=== PATIENT | female | born 1960 | race Caucasian/White ===

== ENCOUNTER 2019-03-10 14:00 | Emergency (ER) | payer OTHER ==
[~2019-03-10] VITALS: Ht 154.9 cm; Wt 63.5 kg
[2019-03-10 14:03] VITALS: BP 130/70
--- NOTE | 2019-03-10 14:12 | NUR ---
Patient ambulated to bed 7. RN evaluating patient at bedside.
--- NOTE | 2019-03-10 14:13 | NUR ---
PT ambulated to bed 07.
--- NOTE | 2019-03-10 14:25 | NUR ---
C/O CONSTANT STERNAL CHEST PAIN 7/10 AND TIGHT/PRESSURE THAT RADIATES TO HER BILAT UPPER BACK, L ARM & L LEG X4 DAYS. PT REPORTS INTERMITTENT NAUSEA, DENIES VOMITING/SWEATING/CHILLS. PT REPORTS SEEING HER PCP EARLIER THIS WEEK, BUT DID NOT KNOW IF SHE HAD AN EKG DONE OR NOT. PT SKIN WARM/DRY, PT A&O X4, SPEAKING CLEAR/APPROPRIATE SENTENCES. PT STATES HER ONLY MEDICAL HX IS HTN. 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
--- NOTE | 2019-03-10 14:50 | NUR ---
ERMD AT BEDSIDE
[2019-03-10] MEDS ORDERED: ASPIRIN 325 MG TAB PO ONE (14:55)
[2019-03-10] MEDS ORDERED: NITROGLYCERIN 0.4 MG TAB SL ONE (14:55)
[2019-03-10 15:34] LABS: BASOPHILS % (AUTO) 0.4 % (0.0-2.0); EOSINOPHILS # (AUTO) 0.1 K/uL (0-0.4); EOSINOPHILS % (AUTO) 1.4 % (0.0-4.0); HEMATOCRIT 38.4 % (36-48); HEMOGLOBIN 12.5 g/dL (12.0-16.0); LYMPHOCYTES # (AUTO) 2.2 K/uL (2.5-16.5); MEAN CORPUSCULAR HEMOGLOBIN 28 pg (27-31); MEAN CORPUSCULAR HGB CONC 33 g/dL (33-37); MEAN CORPUSCULAR VOLUME 86.9 fL (80-94); MONOCYTES # (AUTO) 0.4 K/uL (0.8-1.0); MONOCYTES % (AUTO) 6.9 % (1.7-9.3); NEUTROPHILS # (AUTO) 3.5 K/uL (1.8-7.7); NEUTROPHILS % (AUTO) 56.3 % (42.2-75.2); PLATELET COUNT (AUTO) 213 K/uL (140-450); RED BLOOD CELL COUNT(AUTO) 4.42 MIL/uL (4.20-5.40); RED CELL DISTRIBUTION WIDTH 13.8 % (11.6-13.7); WHITE BLOOD COUNT (AUTO) 6.2 K/uL (4.8-10.8)
[2019-03-10 15:49] LABS: ANION GAP 14.7 (8-16); CARBON DIOXIDE 25.3 mmol/L (21-32); CREATININE 0.9 mg/dL (0.6-1.3)
--- NOTE | 2019-03-10 15:58 | NUR ---
PT AMB TO [facility] W/O ASST
--- NOTE | 2019-03-10 16:35 | NUR ---
PT RESTING IN BED, NO NEW NEEDS AT THIS TIME
--- NOTE | 2019-03-10 16:40 | NUR ---
Dr. Porras evaluating patient at bedside.
[2019-03-10 17:39] VITALS: BP 112/67
== END 2019-03-10 17:20 | disposition home or self-care (01) ==
LOC: MED 14:00
DX: R07.89 Other chest pain (principal); R06.02 Shortness of breath; R42 Dizziness and giddiness; M79.602 Pain in left arm
CPT/HCPCS: 36415; 71045; 80048; 81002; 84484; 85025; 93005; 99284; Q0092

== ENCOUNTER 2022-09-09 21:27 | Emergency (ER) | payer MEDICAID, OTHER ==
[~2022-09-09] VITALS: Ht 154.9 cm; Wt 65.8 kg
[2022-09-09 21:50] VITALS: BP 153/60
--- NOTE | 2022-09-09 21:53 | NUR ---
TO LOBBY A/W BED AMBULATORY
--- NOTE | 2022-09-09 23:59 | NUR ---
PT TAKEN TO RADIOLOGY
[2022-09-10] MEDS ORDERED: KETOROLAC 60 MG/2 ML VIAL IM ONE (00:25)
[2022-09-10] MEDS ORDERED: NAPR-54 PO (00:56)
== END 2022-09-10 01:00 | disposition home or self-care (01) ==
LOC: MED 21:27
DX: S13.4XXA Sprain of ligaments of cervical spine, initial encounter (principal); I10 Essential (primary) hypertension; X58.XXXA Exposure to other specified factors, initial encounter; Y93.89 Activity, other specified; Y92.89 Other specified places as the place of occurrence of the external cause; Y99.8 Other external cause status
CPT/HCPCS: 71250; 96372; 99285; J1885